=== PATIENT | female | born 1985 | race Caucasian/White ===

== ENCOUNTER 2020-03-28 07:00 | Outpatient (RCR) | payer OTHER, SELFPAY ==
--- NOTE | 2020-03-27 11:30 | HO.PHPPROGNO ---
Subjective Subjective Date of Service: 03/27/20 Reason For Visit: F33.2 Interim History: 34 yo female, 17 yr hx depression, sx increasing with dx of autoimmune disorder with a few near experiences with blood clots. Recent breast biopsy negative. Pt self referred, has an open DCF case and reports an increase in depressive and anxious sx. Has 2 children, ages 11 and 3 (with Autism). Previous trials of Sertraline, Citalopram, Escitalopram, Propranolol. Family hx of bipolar (maternal grandmother was manic and required IPLOC. Mom with anxiety, currently uses Lorazepam. Using alcohol 3 years 2-3 glasses of wine 4-5 times per week, hx Oxycontin with Percocet to augment s/p surgery along with Xanax. OD 02/26/20 with resulting 3 day admission. Lamictal trial initiated with permission of medical team in consideration of medical issues which pt is tolerating and will titrate next week. Plans PHP discharge this week. Medication Compliance: Yes (Denies-tolerating Lamictal 25 mg- will titrate to 50 mg next week.) Side effects from medications: No Attending Groups: Yes Mental Status Exam Mental Status Exam Patient Appearance: Appropriate Patient Orientation: Person, Place, Time and Situation Level of Consciousness: Awake, Appropriate and Alert Patient Behavior: Appropriate, Talkative and Cooperative Mood Description: Calm, Appropriate and Flat Affect Description: Calm and Appropriate Patient Cognition Impaired: No Ability to Follow Directions: Excellent Speech Pattern: Clear, Normal for Patient, Appropriate and Soft-Spoken Memory Description: Intact Hallucinations: None Delusions: Not Present Thought Process: Intact and Goal Oriented Thought Content: Intact and Goal Oriented Judgement: Good (Intact) Judgement and Insight: Intact Diagnostics Vital Signs (24Hr): Telehealth pt Assessment & Plan Certification I certify that partial hospital treatment is medically necessary due to the symptoms and problems resulting from the patient's mental illness and the failure to treat the patient at the partial hospital level of care would likely result in the patient requiring inpatient psychiatric care which could not be prevented at a less intensive level of care. Greater than 50% of the session was spent on counseling and/or coordination of care Refill sent in for Lamictal. Pt will titrate next week and will continue to have PCP prescribe until she is settled with her new out pt team. Discharge Plan Discharge Attending provider: Kin,Jassi Medications: New lamotrigine [Lamictal] 25 mg tablet 25 mg PO BID 14 Days Qty: 28 RF: 0
== END 2020-03-28 23:55 | disposition home or self-care (01) ==
LOC: HO.PHPA 07:00
PROVIDERS: Visit Provider Psychiatry & Neurology Psychiatry
DX: F33.2 Major depressive disorder, recurrent severe without psychotic features (principal); F11.20 Opioid dependence, uncomplicated; F13.20 Sedative, hypnotic or anxiolytic dependence, uncomplicated; F10.20 Alcohol dependence, uncomplicated
CPT/HCPCS: 90853; 99213